=== PATIENT | female | born 1965 | race Caucasian/White ===

== ENCOUNTER 2025-04-18 12:32 | Emergency (ER) | payer SELFPAY ==
[~2025-04-18] VITALS: Ht 147.3 cm; Wt 71.0 kg
[2025-04-18 12:36] VITALS: TEMP 36.6; O2SAT 98
[2025-04-18 15:10] LABS: BASOPHILS % 0.8 % (0.0-2.0); EOSINOPHILS % 1.4 % (0.0-5.0); HEMATOCRIT. 36.9 % (36.0-48.0); HEMOGLOBIN. 12.3 g/dL (12.0-16.0); MEAN CORPUSCULAR HEMOGLOBIN 28.5 pg (28.0-32.0); MEAN CORPUSCULAR HGB CONC 33.4 g/dL (31.0-37.0); MEAN CORPUSCULAR VOLUME 85.4 fL (81.0-99.0); MEAN PLATELET VOLUME 8.3 fl (7.4-10.4); MONOCYTES % 6.8 % (2.0-8.0); PLATELET 263 x1000/uL (130-400); RED BLOOD CELL COUNT 4.32 mill/uL (4.2-5.4); RED CELL DISTRIBUTION WIDTH 12.9 % (11.6-14.6); WHITE BLOOD COUNT 6.1 x1000/uL (4.5-11.0)
[2025-04-18 15:28] LABS: CALCIUM 9.6 mg/dL (8.7-10.4); CARBON DIOXIDE 29 mEq/L (21-32); CHLORIDE 106 mEq/L (98-107); POTASSIUM 3.6 mEq/L (3.5-5.1); SODIUM 142 mEq/L (136-145)
[2025-04-18 15:33] LABS: CREATININE 0.7 mg/dL (0.6-1.0); GLUCOSE 106 mg/dL (70-105)
[2025-04-18 15:34] LABS: UREA NITROGEN BLOOD 16 mg/dL (9-23)
[2025-04-18 15:35] LABS: ALANINE AMINOTRANSFERASE 16 IU/L (10-49); ALBUMIN 4.3 g/dL (3.2-4.8); ASPARTATE AMINOTRANSFERASE 30 IU/L (<34); BILIRUBIN DIRECT 0.2 mg/dL (<=3.0)
[2025-04-18 15:36] LABS: BILIRUBIN TOTAL 0.8 mg/dL (0.1-1.0); PROTEIN TOTAL 6.7 g/dL (6.0-8.3)
[2025-04-18] MEDS: CEFTRIAXONE SODIUM 500MG VIAL IM ONE (19:00)
[2025-04-18] MEDS: LIDOCAINE HCL/PF 1% 10 MG/ML 5ML VIAL INFIL ONE (19:30)
[2025-04-18] MEDS ORDERED: SULF1TAB48 MT (19:30)
[2025-04-18] MEDS ORDERED: METR-167 MT (19:30)
[2025-04-18] MEDS ORDERED: DOXY100T28 MT (19:30)
[2025-04-18 19:54] VITALS: BP 110/64; PULSE 62; RESP 20; O2SAT 97
== END 2025-04-18 19:55 | disposition home or self-care (01) ==
LOC: ER 12:32
DX: N39.0 Urinary tract infection, site not specified (principal); R10.2 Pelvic and perineal pain; Z79.899 Other long term (current) drug therapy; Z88.0 Allergy status to penicillin
CPT/HCPCS: 99284; 74176; 86592; 80076; 80048; 83690; 85025; 36415; J0696; J2003

== ENCOUNTER 2025-04-18 23:00 | Emergency (ER) | payer MEDICAID ==
[~2025-04-18 23:00] MED LIST: DOXY100T28 MT; METR-167 MT; SULF1TAB48 MT
[2025-04-18 23:03] VITALS: PULSE 79; O2SAT 100
== END 2025-04-19 00:07 | disposition left against medical advice (07) ==
LOC: ER 23:00
DX: Z00.8 Encounter for other general examination (principal); Z53.21 Procedure and treatment not carried out due to patient leaving prior to being seen by health care provider